=== PATIENT | male | born 1955 | race Caucasian/White ===

== ENCOUNTER 2020-09-15 05:00 | Inpatient (IN) | payer OTHER ==
[~2020-09-15] VITALS: Ht 167.6 cm; Wt 59.9 kg
[2020-09-15] MEDS ORDERED: METOPROLOL TART25 MG PO (05:35)
[2020-09-15] MEDS ORDERED: ATORVASTATIN CA20 MG PO (05:35)
[2020-09-15] MEDS ORDERED: ALPRAZOLAM 0.0.25 M1 PO (05:35)
[2020-09-15] MEDS ORDERED: LEXAPRO 10 MG T10 M2 PO (05:35)
[2020-09-15 09:38] VITALS: BP 135/89
--- NOTE | 2020-09-15 11:48 | NUR ---
1145 PATIENT NEW ADMIT HERE FROM [facility] TO [facility]. 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 PATIENT ALSO PLAYS [employer] FOR THE [employer]. PATIENT HAS HAD A DECLINE IN COGNITIVE THINKING AND CANNOT WORK ANYMORE. PATIENT DENIES SI/HI/AH/VH AT PRESENT PATIENTS ABDOMEN SOFT BOWEL SOUNDS PRESENT. PATIENTS LUNGS CLEAR PATIENT IS VERY PLEASANT TO TALK WITH CALM ALERT ORIENTED TIMES 4. PATIENT HAS MOLES ON HIS BACK AND HAD SMALL LESION ON HIS BACK THAT WAS CANCER. IT WAS TAKEN OFF WITH SUCCESS PATIENT NO OTHER SKIN ISSUES. PATIENT WOULD LIKE HELP DEALING WITH HIM LOOSING COGNITION. WILL CONTINUE TO MONITOR PATIENT FOR SAFETY AND BEHAVIORS.
[2020-09-15 19:03] VITALS: BP 103/65
--- NOTE | 2020-09-15 19:56 | NUR ---
PT OBSERVED PACING IN [place], GOING TO ROOM AND THEN RETURNING TO DAY ROOM. PT NOT SITTING WITH PEERS OR STAFF ON THE PERIPHERY. PT BLUNTED AFFECT, GOOD EYE CONTACT, MINIMAL SPEECH. PT COMPLIANT WITH MEDS AND HS SNACK. STEADY GAIT. PT FELL ASLEEP IN CHAIR IN DAY ROOM BY 1999.
[2020-09-16 07:15] VITALS: BP 101/67
--- NOTE | 2020-09-16 11:48 | NUR ---
Assess due to new admit to [facility] with cognitive decline. Visited pt in day room, sitting by self in the corner. Very pleasant during conversation. Stated he had lost about 5-10 lb over past few weeks due to increased anxiety levels. Now eating very well, 100% and aware he can order from alternative menu. Has no specific food preferences. BMI 21.8 at low end of healthy range. Promote wt gain back towards usual of 140 lb. Low nutrition risk
--- NOTE | 2020-09-16 16:34 | NUR ---
PATIENT HAS BEEN QUITE THROUGH THE DAY. PLEASANT WITH CARES. AMBULATES ABOUT FACILTY WITH QUIET DEMEANOR. PLEASANT TO TALK TO. HE KEEPS REITERITATING THAT THERE ARE MICRO PARTICLES AROUND HIM THAT ARE DANGEROUS. URGING EVERYONE HE CAN TO STAY AWAY FROM HIM. WILL NOT ELABORATE ON THIS.
[2020-09-16 19:08] VITALS: BP 101/63
--- NOTE | 2020-09-17 06:50 | NUR ---
BRIEF INTERACTION WITH PATIENT AT APPROX 2130 LAST PM-SITTING QUIETLY IN DAYROOM WATCHING TV WITH PEERS. COOPERATIVE WITH PM ASSESSMENT AND 1;1 INTERACTTION WITH THIS NURSE. DENIES C/O PAIN/DISCOMFORT. DENIES ACUTE ANXIETY OR CURRENT SI/SH. IS NOTED TO BE SLIGHTLY HYPERVIGILANT IN [place]-WATCHING STAFF AND PEERS KATALINA. GUARDED DURING BRIEF INTERACTION WITH NURSING. NO NOTED OR REPORTED PSYCHOSIS. DENIES A/V HALLUCINATIONS WHEN ASKED
--- NOTE | 2020-09-17 06:54 | NUR ---
METOPROLOL SCHEDULED FOR HS HELD D/T LOW BP . PT DENIES DIZZINESS/LIGHTHEADNESS.
[2020-09-17 09:33] VITALS: BP 127/77
--- NOTE | 2020-09-17 16:55 | NUR ---
PT ASSESSED AT START OF SHIFT. HAS BEEN CALM AND COOPERATIVE. DID SOME VISITING AND NAPPED IN THE CHAIR IN THE DINING ROOM. STATES HE IS FEELING SOME BETTER.
[2020-09-17 19:29] VITALS: BP 95/58
--- NOTE | 2020-09-18 04:21 | NUR ---
PT IS ALERT AND ORIENTED. OBSERVED SITTING IN DAY AREA AT THE START OF SHIFT WATCHING TV. NO SIGNS OF DISTRESS. PT DENIES PAIN OR ANY NEEDS. TOOK HS MEDS CALMLY.PT WENT TO BED TIMELY AND APPEARS TO BE SLEEPING AT THIS TIME.
[2020-09-18 09:17] VITALS: BP 98/57
--- NOTE | 2020-09-18 10:22 | NUR ---
Alert and orientated X4. Denies SI/HI. Calm, cooperative and compliant. Breath sounds clear. Reg HR auscultated. Color pink with brisk capillary refill and palpable peripheral pulses. No edema noted. Independent with voiding, reports BM yesterday. Active bowel sounds over soft, flat abdomen. Ambulates with regular, steady gait. No s/o distress.
[2020-09-18 19:54] VITALS: BP 127/69
--- NOTE | 2020-09-19 04:45 | NUR ---
09-18-20 CARE TRANSFERRED 1914 OBSERVED PT SITTING IN DAY ROOM WATCHING TV. LATER PT AAOX4, VSS, RR EVEN AND NONLABORED ON RA. PT DENIES PAIN AND SI/HI. PT REPORTED HE IS FEELING BETTER AND IS LOOKING FORWARD TO GOING HOME. PT HAS BEEN PLEASANT, CALM AND COOPERATIVE. DURING MEDICATIN ADMIN PT HAD NO DIFFICULTIES. LATER NOTED PT RESTING IN BED WITH EYES CLOSED. ZERO S/S OF ACUTE DISTRESS NOTED, PT WILL CONTINUE TO BE MNITOR PER [facility] PROTOCOL.
[2020-09-19 08:40] VITALS: BP 114/65
--- NOTE | 2020-09-19 08:58 | NUR ---
PT SITTING AT TABLE BEING SOCIAL WITH PEERS. PT DENIES ANY CONCERNS OR GOALS TODAY. PT UP AD BEE. PT TOOK MEDS WITHOUT ANY ISSUES THIS AM.
[2020-09-19 09:56] VITALS: BP 114/65
[2020-09-19 19:21] VITALS: BP 123/68
--- NOTE | 2020-09-20 01:43 | NUR ---
09-19-20 CARE TRANSFERRED 0 OBSERVED PT SITTING IN DAY ROOM SOCIALIZING WITH OTHERS. LATER PT AAOX4, VSS, RR EVEN AND NONLABORED ON RA. PT DENIES PAIN AND SI/HI. PT PRESENTS PLEASANT, CALM AND COOPERATIVE. PT REPORTS HE HAS BEEN FEELING BETTER. LATER ADJUSTED PT BED FOR COMFORT, ZERO S/S OF ACUTE DISTRESS NOTED. PT WILL CONTINUE TO BE MONITOR PER [facility] PROTOCOL.
--- NOTE | 2020-09-20 09:08 | H ---
[facility] [place] [address] [place] [address] HISTORY AND PHYSICAL Name: JOSE LEIJA Room #: 521B-B ADM IN M.R.#: [id number] Admission: 09/15/20 Attend Phys: Perry Daugherty DO Discharge: Date of : 55 Report #: [id number] THIS REPORT FOR: cc: Ceci Mancini Rebekah J. DO Kerstein, Andrew H. DO ~ DOC #: [id number] PERRY Daugherty DO DATE OF SERVICE: 10/15/2020 INPATIENT PSYCHIATRIC EVALUATION ATTENDING PSYCHIATRIST: Perry Daugherty DO FEATHER SEPARATOR: Perry Flores MD REASON FOR ADMISSION: Suicidal ideation to jump off a building at [employer]. SOURCES OF INFORMATION: Interview with patient; telephone conversation with the patient's , Ban; records from [facility]; chart review. 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 The patient has both bachelor's, master's and doctoral degree as stated. The patient has had memory difficulties. Apparently, he was assessed by Dr. Rex Frye, neuropsychologist, in the [facility] system in February or March of last year. From the PETER assessment from [facility], a 64-year-old male presented by his . He reports he has been having increased anxiety since returning from his mother's in early July that was held in [facility]. He notes there has been a lot of changes including moving to a new home, of his mother and having to take halfway from work due to memory issues. The patient reports that he has been particularly anxious and fixated on the fact that he may have contaminated his whole home. He may have accidentally harmed himself and his when he did not follow directions that were given to him for applied fertilizer to his lawn last week and his confirms a general nature of this, but also as the patient is really becoming obsessed about it. The patient states that when he returned home, he then followed direction given to him alone, and feels that he may now contaminate his house, cause irreversible damage, could be going to longterm for being irresponsible. 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 The patient reports that he has been concerned he would act on these thoughts and that they come and go throughout the day. [facility] [address] [place] [address] HISTORY AND PHYSICAL Name: JOSE LEIJA Room #: 521B-B ADM IN M.R.#: [id number] Admission: 09/15/20 Attend Phys: Perry Daugherty DO Discharge: Date of : 55 Report #: [id number] Notes he is not sure he would keep from harming himself. He maintained good eye contact in the interview. Denied HI. He reports that he often thinks that he has seen something somewhere, but whenever he turns it is not there and he attributes this to having hallucinations that appears to be part of his memory loss. 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 He has had more difficult time relating recent events. He reports that he is taking several tests. He has been diagnosed with mild cognitive decline. He has a neurologist, Aparna Mandel at and psychiatrist, Oscar Baez at [facility], who agreed voluntarily to inpatient mental health. His added that they are planning to move in a month from [facility] to [place], [place] where her family has additional information as follows: On psychiatric review of systems, he reports he has been difficulty sleeping over the past few nights. He has been only able to get a few hours of sleep per night. He notes that he has times where he is unable to sleep at all. He endorsed depression; suicidal ideation; 10-pound weight loss, unintentional over the last 3 months. He endorses erectile and sexual dysfunction due to previous psych meds that have been prescribed. He reports that in the past he was diagnosed with ADHD and Strattera was prescribed. Additional information from the ER states he has been anxious. His said he was not acting normally and he has been crying. is concerned about her safety. There is a history of basal cell cancer, nodular atypical deep and peripheral margins, bradycardia and chronic prostatitis, coronary artery calcification of cantwell arteries, essential hypertension, heart palpitations. He has prediabetes, premature ventricular contractions. PSYCHIATRIC HISTORY: Includes memory loss, anxiety. SURGICAL PROCEDURE HISTORY: Colonoscopy in 04/2015, skin cancer excision in 2014, tonsillectomy in 1963. ALLERGIES: ALKYLAMINE AND DIPHENHYDRAMINE. FAMILY HISTORY: Dementia in his father, colon polyps in father, multiple sclerosis in father, hypertension in father, hyperlipidemia in father, dementia in mother, stroke in mother, skin cancer in mother, arrhythmia in mother. Sister; arrhythmia, tachycardia, history of ablation. Dementia in paternal aunt. Prostate cancer in paternal grandfather. Glaucoma in maternal grandmother; also additional surgery, wisdom tooth extraction in 1995. SOCIAL HISTORY: No smoke, no alcohol, no recreational drug use. REVIEW OF SYSTEMS: CONSTITUTIONAL: Negative. HEENT: Negative. [facility] [address] [place] [address] HISTORY AND PHYSICAL Name: JOSE LEIJA Room #: 521B-B ADM IN ..#: [id number] Admission: 09/15/20 Attend Phys: Perry Daugherty DO Discharge: Date of : 55 Report #: [id number] RESPIRATORY: Negative. CARDIOVASCULAR: Negative. GASTROINTESTINAL: Negative. GENITOURINARY: Negative. MUSCULOSKELETAL: Negative. SKIN: Negative. ALLERGY AND IMMUNOLOGIC: Negative. NEUROLOGIC: Negative. HEMATOLOGIC: Negative. PSYCHIATRIC: As above. All other review of systems were negative. LABORATORY DATA: Values from blood work, white count 5.60, H and H 13.6 and 39, platelet count 206. Electrolytes: Sodium 136, potassium 4.0, chloride 103, bicarbonate 28, anion gap 5, calcium 9.1, glucose 103, total protein 6.4, albumin 3.8, alkaline phosphatase 51, ALT 31, AST 35, total bilirubin 0.4, BUN 17, creatinine 1.0, estimated GFR male non- 75. UDS not detected. Alcohol serum less than 10. EKG showed rate of 92, QT 448, QTC 396. Interestingly, the EKG for him at the [facility] did show sinus bradycardia, rate of 47, but the QTC [address] Ceci Mancini is his PCP. PHYSICAL EXAMINATION: VITAL SIGNS: Here at [place], temperature 36.4, pulse 82, respirations 18, BP 135/89, O2 sat 96%. MUSCULOSKELETAL: Normal gait and station, were not tested. MENTAL STATUS EXAMINATION: This is a well-developed, fairly nourished male, BMI 21.8, weight 61.263 kilos, appearing stated age. Attention fair. Concentration fair. Speech normal rate, rhythm and tone. Thought process: Linear and goal oriented. Thought content: Focused and obsessed I should say with fertilizer concerns. Thought process and thought content as described. Mood and affect restricted, dysphoric, congruent. Endorsed SI, denied HI. Denied auditory, visual, or tactile hallucinations. Memory not formally tested today. Insight limited. Judgment limited. Fund of knowledge above average. FORMULATION: A 64-year-old male sent over from [facility] voluntary admission for suicidal ideation. The patient has a history of the last two years or so memory problems, do not have records from [facility]. DIAGNOSES: At this time, major depressive disorder, single episode, severe degree; unspecified anxiety; rule out major neurocognitive disorder due to early Alzheimer's disease with behavioral disturbance. Additional morbidities include hypertension, hyperlipidemia. [address] [address] HISTORY AND PHYSICAL Name: JOSE LEIJA Room #: 521B-B [facility] IN M.R.#: [id number] Admission: 09/15/20 Attend Phys: Perry Daugherty, DO Discharge: Date of : 55 Report #: [id number] PLAN: The patient admitted to geriatric psychiatry unit voluntarily patient at this time. His home meds of metoprolol tartrate 12.5 mg p.o. b.i.d. were continued. Lisinopril 5 mg p.o. daily, Lexapro 10 mg p.o. daily, atorvastatin 20 mg p.o. daily were continued. I have added on Seroquel 25 mg oral scheduled 3 times a day for anxiety. We will see how he responds to this. I have asked that Dr. Dale Kinsey, neuropsychologist, come in to test the patient as I am deeply concerned he is converted at this time to a full blown major neurocognitive disorder. Estimated length of stay 10 to 14 days. STRENGTHS: He is insured, family support. WEAKNESSES: Likely progressive neurodegenerative disorder. Also, hold off until I get records from [facility] and when ordering more dementia workup items like a head CT or stuff like that. Greater than 60 minutes were spent on this case and greater than 50% of the time spent on review of care and coordination of care. DO CLAUDIO Valenzuela/JEANMARIE/TATIANA <ELECTRONICALLY SIGNED> By: Perry Daugherty DO 09/20/20 0908 [id number] 1825 Perry Daugherty DO /nt
[2020-09-20 09:15] VITALS: BP 141/80
[2020-09-20 13:20] VITALS: BP 141/80
--- NOTE | 2020-09-20 13:30 | NUR ---
ASSUMED CARE AT 0700 TODAY. PT. HAS BEEN SITTING WITH A SELECT GROUP OF WOMEN WHILE ON THE UNIT. ALL TALKING TOGETHER. HE SHARED WITH THE GROUP, "I HAVE ALZEHEIMES". HE MOSTLY SITS QUIETLY LISTENING TO THE WOMEN. HE IS STEADY ON HIS FEET AND AMBULATES WITHOUT ISSUES. HE IS INDEPENDENT WITH HIS CARES. HE TAKES HIS MEDICATIONS WITHOUT PROBLEMS NOTED. NO NEW PROBLEMS NOTED OR VOICED TODAY. WILL CONTINUE TO MONITOR.
[2020-09-20 20:04] VITALS: BP 105/59
--- NOTE | 2020-09-21 04:26 | NUR ---
BLUNTED AFFECT DURING 1;1 INTERACTION/PM ASSESSMENT. IS SITTING WITH PEERS AT TABLE IN DAYROOM AND IS NOTED TO HAVE SOME SPONTANEOUS RESPONSES WHEN CONVERSING WITH THEM. SLIGHTLY GUARDED DURING INTERACTION WITH NURSING STAFF REPORTING MOOD "FINE" DENIES ACUTE ANXIETY.STATES DEPRESSIVE SYMPTOMS ARE "BETTER" AND DENIES SI/SH.APPEARS UNKEMPT ,UNSHAVEN-WHEN ASKED IF HE WOULD LIKE STAFF TO SHAVE HIM STATES "NO I'LL WAIT UNTIL I GET HOME. HS METOPROL HELD FOR BP 98/54. DENIES PAIN/DISCOMFORT. DENIES DISTURBANCE OF SLEEP OR APPETITTE STATING "MY APPETITE IS TOO GOOD"GAIT STEADY WITHOUT ASSISITVE DEVICES.
[2020-09-21 08:52] VITALS: BP 105/73; BP 105/93
[2020-09-21 09:01] VITALS: BP 105/73
--- NOTE | 2020-09-21 10:14 | NUR ---
1014 RESUMMED CARE FROM OVERNIGHT SHIFT THIS AM, PATIENT LYING IN BED QUIET. PATIENT ALLOWED ME TO DO HIS ASSESSMENT PATIENT ALERT ORIENTED TIMES 4. PATIENT DENIES SI/HI/AH/VH AT PRESENT PATIENTS ABDOMEN SOFT BOWEL SOUNDS PRESENT. PATIENTS LUNGS CLEAR PATIENT CALM COOPERATIVE AFFECT STILL FLAT. PATIENT HAS NOT DISPLAYED ANY BEHAVIORS PATIENT PARTICIPATES IN GROUP WILL CONTINUE TO MONITOR FOR SAFETY AND BEHAVIORS.
--- NOTE | 2020-09-21 17:56 | NUR ---
@[address] Agudelo participated in a family meeting with Pt and his , Ban. Ban was able to vocalize the plan for when the Pt returns home. Ban stated Pt would be able to stay with her mother and a family friend during the time she is at work. Ban was informed that Pt should no longer drive and is in need of 24hr supervision. Ban and the Pt showed understanding of this information. Pt will be d/c home with continued otpt psychiatry on 09/22/2020 @1600. Ban will pick the pt up at discharge. BO will schedule follow up appointment with psychiatrist and PCP
[2020-09-21 19:04] VITALS: BP 108/62
--- NOTE | 2020-09-22 05:26 | NUR ---
09-21-20 CARE TRANSFERRED 1900 OBSERVED PT SITTING IN DAY ROOM. PT AAOX4, VSS, RR EVEN AND NONLABORED ON RA. PT DENIES SI/HI AND PAIN. PT IS PLEASANT, CALM AND COOPERATIVE. ZERO S/S OF ACUTE DISTRESS NOTED, PT WILL CONTINUE TO BE MONITOR PER [facility] PROTOCOL.
[2020-09-22 08:00] VITALS: BP 125/75
[2020-09-22 08:40] VITALS: BP 125/75
--- NOTE | 2020-09-22 12:26 | NUR ---
PATIENT HAS BEEN UP, AND OUT ON THE UNIT, AMBULATE WITH STEADY GAIT. PATIENT TOOK ALL MEDICATION WHOLE WITHOUT DIFFICULTY, HE IS EATING MEALS, AND DRINKING FLUID WELL. PATIENT DENIES SUICIDAL/HOMICIDAL IDEATION, HE RATES BOTH DEPRESSION/ANXIETY 2/10. MOOD IS CALM, AFFECT IS BRIGHT. PATIENT IS DISCHARGING HOME TODAY BY DR. SOLORZANO, TO BE PICKED-UP BY FAMILY AT 1600 HOURS. PATIENT DENIES HAVING PHYSICAL PAIN. NO SIGN OF ACUTE DISTRESS NOTED AT THIS TIME, WILL MONITOR FOR SAFETY.
[2020-09-22] MEDS ORDERED: QUETIAPINE FUM400 M1 PO (13:09)
[2020-09-22] MEDS ORDERED: MIRALAX17 GM PO (13:09)
[2020-09-22] MEDS ORDERED: LEXAPRO 10 MG T10 M2 PO (13:09)
[2020-09-22] MEDS ORDERED: LISINOPRIL5 MG PO (13:09)
[2020-09-22] MEDS ORDERED: METOPROLOL TART25 MG PO (13:09)
--- NOTE | 2020-09-22 14:01 | NUR ---
BO was able to make a follow up psychiatric appoinment with Dr. Oscar Porter for the Pt. Appointment will be 10/27/2020 @2083. BO called Pt's primary care Doctor Ceci Gutiérrez office several times to schedule a follow up appointment. BO left two messages for a call back to schedule appointment. As of this note there has been no call back.
== END 2020-09-22 16:08 | disposition home or self-care (01) | DRG 57 ==
LOC: SBH
PROVIDERS: ADMIT Psychiatry & Neurology Psychiatry; ATTEND Psychiatry & Neurology Psychiatry
DX: G30.0 Alzheimer's disease with early onset (principal); F02.81 Dementia in other diseases classified elsewhere, unspecified severity, with behavioral disturbance; R45.851 Suicidal ideations; F01.51 Vascular dementia, unspecified severity, with behavioral disturbance; F29 Unspecified psychosis not due to a substance or known physiological condition; I10 Essential (primary) hypertension; F32.9 Major depressive disorder, single episode, unspecified; F41.1 Generalized anxiety disorder; Z85.46 Personal history of malignant neoplasm of prostate; Z88.8 Allergy status to other drugs, medicaments and biological substances; Z82.49 Family history of ischemic heart disease and other diseases of the circulatory system; Z80.42 Family history of malignant neoplasm of prostate; Z20.822 Contact with and (suspected) exposure to COVID-19
CPT/HCPCS: 10880

== ENCOUNTER → 2020-09-15 | Emergency (ER) | payer OTHER ==
[~2020-09-15] VITALS: Ht 170.2 cm; Wt 60.8 kg
[~2020-09-15] MED LIST: ALPRAZOLAM 0.0.25 M1 PO; ATORVASTATIN CA20 MG PO; LEXAPRO 10 MG T10 M2 PO; METOPROLOL TART25 MG PO
[2020-09-15 05:16] VITALS: BP 159/70
== END ==
LOC: ER 05:14 → EROBS 06:01 → ER 06:01
DX: R45.851 Suicidal ideations (principal); Z20.822 Contact with and (suspected) exposure to COVID-19; G31.84 Mild cognitive impairment of uncertain or unknown etiology; Z88.6 Allergy status to analgesic agent; Z79.899 Other long term (current) drug therapy